=== PATIENT | male | born 1955 | race African-American/Black ===

== ENCOUNTER 2019-01-22 17:55 | Inpatient (IN) | payer OTHER ==
[~2019-01-22] VITALS: Ht 172.7 cm; Wt 76.7 kg
[2019-01-22 17:59] VITALS: Ht 172.7 cm; Wt 76.7 kg
[2019-01-22 19:02] LABS: BASOPHIL % 0.5 % (0-2); PLATELET COUNT 243 x10^3mcL (130-400); RED CELL DISTRIBUTION WIDTH 13.6 % (11.5-14.5)
[2019-01-22 19:14] LABS: ALBUMIN 3.8 g/dL (3.4-5.0); BILIRUBIN TOTAL 0.47 mg/dL (0.20-1.00); CALCIUM 9.7 mg/dL (8.5-10.1); CARBON DIOXIDE 22.9 mmol/L (21-32); CREATININE SERUM 1.4 mg/dL (0.7-1.3); POTASSIUM SERUM 4.9 mmol/L (3.5-5.1); TOTAL PROTEIN, SERUM 7.4 g/dL (6.4-8.2)
[2019-01-22] MEDS ORDERED: ZETIA10 M1 PO (19:25)
[2019-01-22] MEDS ORDERED: NIFEDIPINE ER90 M2 PO (19:25)
[2019-01-22] MEDS ORDERED: NEXIUM40 MG PO (19:26)
[2019-01-22] MEDS ORDERED: ALTACE10 MG PO (19:28)
[2019-01-22] MEDS ORDERED: PRA10 PO (19:29)
[2019-01-22 20:02] LABS: microscopic required? NO
[2019-01-22 20:10] LABS: CHOLESTEROL/HDL RATIO 4.5; MAGNESIUM 1.5 mg/dL (1.8-2.4)
[2019-01-22 20:49] VITALS: BP 124/77
[2019-01-22 20:55] LABS: urine erythrocyte NEGATIVE (NEGATIVE)
[2019-01-22 21:04] LABS: AMPHETAMINE QUAL UR NONE DETECTED (See below)
[2019-01-23 03:50] VITALS: BP 98/59
[2019-01-23 06:18] VITALS: BP 128/72
[2019-01-23 06:50] LABS: BASOPHIL % 0.8 % (0-2); PLATELET COUNT 193 x10^3mcL (130-400); RED CELL DISTRIBUTION WIDTH 13.1 % (11.5-14.5)
[2019-01-23 07:08] LABS: CARBON DIOXIDE 26.5 mmol/L (21-32); CHLORIDE SERUM 105 mmol/L (98-107); CREATININE SERUM 0.9 mg/dL (0.7-1.3); GFR1 > 60 mL/min; GLUCOSE SERUM 169 mg/dL (74-106); POTASSIUM SERUM 3.4 mmol/L (3.5-5.1); SODIUM SERUM 138 mmol/L (136-145)
[2019-01-23 09:01] VITALS: BP 119/65
[2019-01-23 10:32] LABS: MAGNESIUM 1.6 mg/dL (1.8-2.4); PHOSPHOROUS 2.7 mg/dL (2.5-4.9)
[2019-01-23] MEDS ORDERED: METFORMIN HCL1000 MG PO (11:44)
[2019-01-23] MEDS ORDERED: LANTUS100 U/ML SC (11:46)
[2019-01-23] MEDS ORDERED: HUMALOG100 U/ML SC (11:54)
[2019-01-23 12:19] VITALS: BP 119/65
[2019-01-23 17:28] VITALS: BP 124/73
== END 2019-01-23 18:18 | disposition home or self-care (01) | DRG 637 ==
LOC: ED 17:55 → DU 19:19 → MU 19:19 → DU 20:17 → MU 01-23 09:25
PROVIDERS: Emergency Medicine; ADMIT Internal Medicine
DX: E11.65 Type 2 diabetes mellitus with hyperglycemia (principal); N17.0 Acute kidney failure with tubular necrosis; E87.1 Hypo-osmolality and hyponatremia; E86.0 Dehydration; E78.00 Pure hypercholesterolemia, unspecified; K21.9 Gastro-esophageal reflux disease without esophagitis; I10 Essential (primary) hypertension; F17.210 Nicotine dependence, cigarettes, uncomplicated; Z68.25 Body mass index [BMI] 25.0-25.9, adult; Z79.84 Long term (current) use of oral hypoglycemic drugs; Z83.3 Family history of diabetes mellitus
CPT/HCPCS: 36600; 82962; J1815; J7030; Q0092